=== PATIENT | male | born 1995 | race Caucasian/White ===

== ENCOUNTER → 2024-08-17 | Outpatient (REF) | LOC: M PLAIMG 11:36 | PROVIDERS: ATTEND Internal Medicine | DX: R06.02 Shortness of breath (principal) ==

== ENCOUNTER → 2024-11-02 | Outpatient (REF) | LOC: M PLAIMG 08:56 | PROVIDERS: ATTEND Internal Medicine | DX: R06.02 Shortness of breath (principal) ==